=== PATIENT | male | born 1950 | race Caucasian/White ===

== ENCOUNTER 2023-06-07 13:21 | Emergency (ER) | payer MEDICARE, SELFPAY ==
--- NOTE | ~2023-06-07 | XR_ITS ---
EXAMINATION: RIGHT FOOT RIGHT ANKLE CLINICAL INFORMATION: Swelling. Ecchymosis COMPARISON: None. TECHNIQUE: 2 views right ankle 3 views right foot FINDINGS: Right ankle: There are proliferative changes at the tip of the lateral and medial malleolus with overlying soft tissue swelling. There is some lucency with amorphous calcification adjacent to the lateral malleolus. The talar dome appears smooth and intact. Faint linear calcifications could be arterial or related to old injury. I suspect joint fluid or synovial thickening anteriorly at the tibiotalar joint. Right foot: No acute fracture or subluxation or focal lesion. There is soft tissue swelling. XR/XR foot RT min 3V IMPRESSION: Soft tissue swelling. Amorphous changes adjacent to the malleoli greatest at the lateral malleolus. Difficult to determine if this represents chronic changes or acute injury superimposed on chronic changes. The ankle mortise is maintained.
--- NOTE | ~2023-06-07 | XR_ITS ---
EXAMINATION: RIGHT FOOT RIGHT ANKLE CLINICAL INFORMATION: Swelling. Ecchymosis COMPARISON: None. TECHNIQUE: 2 views right ankle 3 views right foot FINDINGS: Right ankle: There are proliferative changes at the tip of the lateral and medial malleolus with overlying soft tissue swelling. There is some lucency with amorphous calcification adjacent to the lateral malleolus. The talar dome appears smooth and intact. Faint linear calcifications could be arterial or related to old injury. I suspect joint fluid or synovial thickening anteriorly at the tibiotalar joint. Right foot: No acute fracture or subluxation or focal lesion. There is soft tissue swelling. XR/XR ankle RT 2V IMPRESSION: Soft tissue swelling. Amorphous changes adjacent to the malleoli greatest at the lateral malleolus. Difficult to determine if this represents chronic changes or acute injury superimposed on chronic changes. The ankle mortise is maintained.
[2023-06-07 13:25] VITALS: BP 128/71; PULSE 93; RESP 18; TEMP 37; O2SAT 94; BMI 19.7
--- NOTE | 2023-06-07 13:27 | ED_ITS ---
HPI - General Adult General Chief complaint: Extremity Injury, Lower Stated complaint: R foot injury Time Seen by Provider: 06/07/23 13:46 Source: patient, RN notes reviewed and old records reviewed Mode of arrival: ambulatory History of Present Illness HPI narrative: 73-year-old male with no significant past medical history presenting to the ED complaining right ankle/foot pain and swelling x1 week s/p rolling ankle after stepping on apple last Friday. Daughter reports patient has been using wheelchair at home, only the past few days has had increased mobility. Reports shooting pain up to groin. Denies injury to other area, head trauma or LOC, weakness or fever. Denies history of gout Onset (ago): week(s) Related Data Allergies Allergy/AdvReac Type Severity Reaction Status Date / Time No Known Allergies Allergy Verified 06/07/23 13:31 Review of Systems Review of Systems: Constitutional: No Fever, No Chills ENT/Mouth: No Ear Pain, No Nasal Congestion, No sore throat, No Rhinorrhea, No Swallowing Difficulty Cardiovascular: No Chest Pain, No SOB Respiratory: No Cough, No Sputum, No Wheezing Musculoskeletal: + joint pain, No Myalgias, +Joint Swelling Skin: No Skin Lesions, No rash Neuro: No Weakness, No Numbness, No Paresthesias, head trauma, no LOC Yes all other systems are reviewed and are negative Constitutional: Constitutional: Reports as per [facility] Past Medical History Attestation statement: The following information was validated with the patient. Source: old records reviewed Social History Social History Advance Directives: No Advance Directives Information Provided: No Physical Exam ED Vital Signs: Vital Signs - 24 hr 06/07/23 13:25 Temperature 98.6 F Pulse Rate 93 Respiratory Rate 18 Blood Pressure 128/71 Pulse Oximetry 94 Oxygen Delivery Method Room Air BMI result Body Mass Index 19.7 Const General: cooperative, healthy appearing and no acute distress Orientation/consciousness: patient oriented x3 Limitations: no limitations HENMT Head: Yes normal to inspection and Yes atraumatic Ears: hearing grossly normal bilaterally General nose exam: Normal external nose present Face and sinus: Yes normal facial exam Eyes General: appearance normal, both eyes and all related structures EOM: EOMs intact bilaterally Neck Neck: Yes normal visual inspection and Yes no meningeal signs Resp Effort & Inspection: normal respiratory effort and no respiratory distress Cardio Rate: regular rate Skin Rashes: no rashes Wounds: no wounds Neuro General: patient oriented x3, tone normal and no meningeal signs Cranial nerves: Yes CN's II-XII intact bilaterally Extrem Other: Right ankle and foot with noted swelling and diffuse tenderness. + pitting edema. Faint erythema to lateral aspect. No warmth. No crepitus/fluctuance or induration. Neurovascularly intact. Tib/fib & knee nontender Course Course Course Narrative: This is a rapid medical exam: Additional HPI, ROS, PE not included below will be deferred to primary provider. Patient is a 73-year-old male presenting to the emergency department with complaint of right ankle pain since last Friday. Reports he rolled it on an apple outside. Three days after injury, was unable to walk. Now pain is radiating up leg, complains of tingling. Significant swelling to dorsal aspect of right foot as well as lateral ankle, ecchymosis to lateral aspect. Plan: x-rays XR foot RT min 3V/XR ankle RT 2V IMPRESSION: Soft tissue swelling. Amorphous changes adjacent to the malleoli greatest at the lateral malleolus. Difficult to determine if this represents chronic changes or acute injury superimposed on chronic changes. The ankle mortise is maintained. > patient admits told ankle injury many years ago > air cast applied. Patient offered crutches however has them at home. Recommended orthopedic follow-up. Results discussed with patient including worrisome signs and symptoms and strict return precautions, and when to return to the emergency department. They verbalized understanding and feel safe for discharge at this time. Medical Decision Making Medical Decision Making MDM Narrative: 73-year-old male with no significant past medical history presenting to the ED complaining right ankle/foot pain and swelling x1 week s/p rolling ankle after stepping on apple last Friday. On exam vital signs stable, NAD, nontoxic ap pearing, physical exam as noted above. Concern for fracture versus sprain. Low suspicion for DVT, septic joint/arthritis or gout with history Plan: X-rays Please refer to course for remaining clinical decision making, interpretation of labs/imaging results, and discussions with consultants and/or family members. Differential Diagnosis Differential Diagnoses: The differential diagnosis associated with the presentation includes As above Independent Interpretation I performed an independent interpretation of an: Plain X-Ray Radiology Impression Discussion of test interpretation with radiology: I have reviewed the radiologist's reading. External Record Review External record reviewed: Inpatient record, Office record, Outpatient record, Prior outpatient labs, Prior outpatient radiology, Primary care record and Outside ED record Tests considered The following testing was considered but not selected: As above Prescription Management I considered prescription management with: Pain Medication Discharge Plan Discharge Clinical Impression: Ankle sprain and strain Patient Disposition: Home, Self-Care Instructions: Ankle Sprain (DC) Additional Instructions: Your x-ray shows soft tissue swelling. No fracture. Take Tylenol and Motrin for pain Ice and elevate Wear Aircast for compression and comfort Bear weight as tolerated Follow-up with your doctor and Orthopedics Return to ED as needed Referrals: [facility] [place] [facility] [Provider Group] Brice Esparza MD [Primary Care Provider] -
== END 2023-06-07 14:52 | disposition home or self-care (01) ==
PROVIDERS: Emergency Provider Internal Medicine; PCP Internal Medicine
DX: S93.401A Sprain of unspecified ligament of right ankle, initial encounter (principal); S96.911A Strain of unspecified muscle and tendon at ankle and foot level, right foot, initial encounter; X50.1XXA Overexertion from prolonged static or awkward postures, initial encounter; Y93.9 Activity, unspecified; Y92.9 Unspecified place or not applicable; Y99.9 Unspecified external cause status
CPT/HCPCS: 73600; 73630; 99283; 99284